=== PATIENT | female | born 1985 | race Caucasian/White ===

== ENCOUNTER → 2019-10-26 | Outpatient (CLI) | payer BC ==
[2019-10-26 10:45] LABS: HEMATOCRIT 36 % (35-52); HEMOGLOBIN 11.3 G/DL (11.5-16.0); LYMPHOCYTES % (AUTO) 12 % (12-44); MEAN CORPUSCULAR HEMOGLOBIN 24 PG (25-34); MEAN CORPUSCULAR HGB CONC 32 G/DL (32-36); MEAN CORPUSCULAR VOLUME 76 FL (80-99); MEAN PLATELET VOLUME 10.4 FL (7.4-10.4); MONOCYTES % (AUTO) 6 % (0-12); NEUTROPHILS % (AUTO) 81 % (42-75); PLATELET COUNT 295 10^3/uL (130-400); RED CELL DISTRIBUTION WIDTH 14.9 % (10.0-14.5); WHITE BLOOD COUNT 14.8 10^3/uL (4.3-11.0)
[2019-10-26 10:46] LABS: BASOPHILS % (AUTO) 0 % (0-10); EOSINOPHILS % (AUTO) 0 % (0-10); LYMPHOCYTES # (AUTO) 1.7 X 10^3 (1.0-4.0); MONOCYTES # (AUTO) 0.9 X 10^3 (0.0-1.0)
[2019-10-26 10:54] LABS: CHLORIDE 103 MMOL/L (98-107); POTASSIUM 3.8 MMOL/L (3.6-5.0); SODIUM 137 MMOL/L (135-145)
[2019-10-26 10:55] LABS: ALANINE AMINOTRANSFERASE 13 U/L (0-55); ALBUMIN 3.6 GM/DL (3.2-4.5); ALKALINE PHOSPHATASE 105 U/L (40-136); BILIRUBIN,TOTAL 0.2 MG/DL (0.1-1.0); BUN/CREATININE RATIO 10; CALCIUM 9.5 MG/DL (8.5-10.1); CARBON DIOXIDE 19 MMOL/L (21-32); CREATININE SERUM 0.49 MG/DL (0.60-1.30); GFR ESTIMATED > 60; GLUCOSE 94 MG/DL (70-105)
[2019-10-26 11:32] LABS: BAND NEUTROPHILS 4 %; NEUTROPHILS % (MANUAL) 82 %
[2019-10-26 11:33] LABS: BASOPHILS % (MANUAL) 0 %; EOSINOPHILS % (MANUAL) 0 %; LYMPHOCYTES % (MANUAL) 11 %; MICROCYTOSIS MODERATE; MONOCYTES % (MANUAL) 3 %
[2019-10-26 15:04] LABS: URIC ACID 4.2 MG/DL (2.6-7.2)
== END ==
LOC: EDBD 10:14 → LAB FS 10:14
PROVIDERS: ATTEND Family Medicine
DX: I10 Essential (primary) hypertension (principal)
CPT/HCPCS: 36415; 80053; 82570; 83615; 84156; 84550; 85007; 85027

== ENCOUNTER 2019-11-04 08:35 | Outpatient (CLI) | payer BC ==
[2019-11-04] VITALS (11 sets, daily range): BP systolic 135–153; BP diastolic 88–107
--- NOTE | 2019-11-04 08:33 | NUR ---
DANNIE ROGERS presented to unit via ambulation from clinic, accompanied by family, with c/o ELEVATED BLOOD PRESSURE. DANNIE ROGERS weighed, gowned, voided, and to bed. EFHM and TOCO applied, VS taken. DANNIE ROGERS oriented to bed controls, call light, TV, heat, and A/C controls.
[2019-11-04 09:52] LABS: BASOPHILS % (AUTO) 0 % (0-10); EOSINOPHILS % (AUTO) 0 % (0-10); HEMATOCRIT 34 % (35-52); HEMOGLOBIN 10.6 G/DL (11.5-16.0); LYMPHOCYTES # (AUTO) 1.6 X 10^3 (1.0-4.0); LYMPHOCYTES % (AUTO) 11 % (12-44); MEAN CORPUSCULAR HEMOGLOBIN 23 PG (25-34); MEAN CORPUSCULAR HGB CONC 31 G/DL (32-36); MEAN CORPUSCULAR VOLUME 75 FL (80-99); MONOCYTES # (AUTO) 1.3 X 10^3 (0.0-1.0); MONOCYTES % (AUTO) 9 % (0-12); NEUTROPHILS # (AUTO) 11.8 X 10^3 (1.8-7.8); NEUTROPHILS % (AUTO) 80 % (42-75); PLATELET COUNT 308 10^3/uL (130-400); RED CELL DISTRIBUTION WIDTH 15.4 % (10.0-14.5); WHITE BLOOD COUNT 14.7 10^3/uL (4.3-11.0)
[2019-11-04 10:11] LABS: ALANINE AMINOTRANSFERASE 17 U/L (0-55); ALBUMIN 3.4 GM/DL (3.2-4.5); ALKALINE PHOSPHATASE 110 U/L (40-136); BILIRUBIN,TOTAL 0.1 MG/DL (0.1-1.0); BUN/CREATININE RATIO 8; CALCIUM 9.3 MG/DL (8.5-10.1); CARBON DIOXIDE 21 MMOL/L (21-32); CHLORIDE 110 MMOL/L (98-107); CREATININE SERUM 0.62 MG/DL (0.60-1.30); GFR ESTIMATED > 60; GLUCOSE 85 MG/DL (70-105); POTASSIUM 3.6 MMOL/L (3.6-5.0); SODIUM 138 MMOL/L (135-145); TOTAL PROTEIN 6.5 GM/DL (6.4-8.2); URIC ACID 4.7 MG/DL (2.6-7.2)
[2019-11-04] MEDS ORDERED: LABETALOL 200 MG (NORMODYNE) TAB PO NR (11:15)
[2019-11-04 11:43] LABS: URINE CREATININE FOR RATIO 34 MG/DL (30-125); URINE PROTEIN FOR RATIO ONLY < 6 MG/DL (6-12)
--- NOTE | 2019-11-04 12:00 | NUR ---
dr sandoval to bedside reviewing poc with patient. patient and family verbalized understanding.
--- NOTE | 2019-11-04 13:40 | NUR ---
Labetolol 200mg BID called to [facility] Paramjit Mccann
--- NOTE | 2019-11-04 13:45 | NUR ---
Discharge instructions explained to pt with copy provided to pt. Pt verbalizes understanding of instruction, denies questions or concerns, and signs to verify. Pt notified of prescription at [facility]. IV removed, tip intact. Pt ambulates off unit to private vehicle, accompanied by family member. No s/s of distress noted.
--- NOTE | 2019-11-05 08:25 | Physician Query-Final Dx ---
RAMON CARMONA 11/05/19 0825: Clinic Account Progress/Dx Physician Query: Please give diagnosis Please include # weeks gestation Date of Service Nov 04, 2019 at 08:35 LOGAN FRAGOSO DO 11/05/19 1634: Clinic Account Progress/Dx DIAGNOSIS: Diagnosis 37 week IUP Gestational Hypertension RAMON CARMONA Nov 05, 2019 08:25 LOGAN FRAGOSO DO Nov 05, 2019 16:34
== END 2019-11-04 13:45 | disposition home or self-care (01) ==
LOC: WSo 08:35 → LDRP 09:10 → WSo 13:45
PROVIDERS: ATTEND Obstetrics & Gynecology
DX: O13.3 Gestational [pregnancy-induced] hypertension without significant proteinuria, third trimester (principal); Z3A.37 37 weeks gestation of pregnancy
CPT/HCPCS: 36415; 80053; 82570; 84156; 84550; 85025; 99213

== ENCOUNTER 2019-11-16 19:00 | Inpatient (IN) | payer BC ==
[~2019-11-16] VITALS: Ht 165.1 cm; Wt 103.7 kg
--- NOTE | 2019-11-16 18:55 | NUR ---
DANNIE ROGERS presented to unit via ambulation from ED, accompanied by S.O. and mom, for INUDCTION. DANNIE ROGERS weighed, gowned, voided, and to bed. EFHM and TOCO applied, VS taken. DANNIE ROGERS oriented to bed controls, call light, TV, heat, and A/C controls.
[2019-11-16] MEDS ORDERED: D5 LR IV SOLUTION 1,000 ML IV ONE (20:06)
[2019-11-16] MEDS: D5 LR IV SOLUTION 1,000 ML IV SCH (20:40)
[2019-11-16] MEDS ORDERED: MISOPROSTOL 100 MCG (CYTOTEC) TAB ONE (20:50)
[2019-11-16 21:00] VITALS: BP 153/89
[2019-11-16] MEDS ORDERED: MISOPROSTOL 100 MCG (CYTOTEC) TAB PO ONE (21:00)
[2019-11-16] MEDS ORDERED: LABE200T7 PO (21:04)
[2019-11-16 21:05] LABS: BASOPHILS % (AUTO) 0 % (0-10); EOSINOPHILS % (AUTO) 0 % (0-10); HEMATOCRIT 32 % (35-52); HEMOGLOBIN 10.4 G/DL (11.5-16.0); LYMPHOCYTES # (AUTO) 1.8 X 10^3 (1.0-4.0); LYMPHOCYTES % (AUTO) 13 % (12-44); MEAN CORPUSCULAR HEMOGLOBIN 24 PG (25-34); MEAN CORPUSCULAR HGB CONC 32 G/DL (32-36); MEAN CORPUSCULAR VOLUME 74 FL (80-99); MEAN PLATELET VOLUME 10.9 FL (7.4-10.4); MONOCYTES # (AUTO) 1.2 X 10^3 (0.0-1.0); MONOCYTES % (AUTO) 8 % (0-12); NEUTROPHILS # (AUTO) 11.3 X 10^3 (1.8-7.8); NEUTROPHILS % (AUTO) 79 % (42-75); PLATELET COUNT 316 10^3/uL (130-400); RED CELL DISTRIBUTION WIDTH 16.1 % (10.0-14.5); WHITE BLOOD COUNT 14.3 10^3/uL (4.3-11.0)
[2019-11-16] MEDS ORDERED: PREN-53 PO (21:05)
[2019-11-16] MEDS ORDERED: LORA10CA PO (21:06)
[2019-11-16] MEDS ORDERED: NS IV 500 ML 500 ML IV SCH (21:15)
[2019-11-16] MEDS ORDERED: CATHETER FLUSH 10 ML SYR IV SCH (22:00)
[2019-11-16 23:00] VITALS: BP 159/94
[2019-11-16 23:03] VITALS: BP 153/89
[2019-11-17] VITALS (78 sets, daily range): BP systolic 16–183; BP diastolic 58–104
[2019-11-17] MEDS: MISOPROSTOL 100 MCG (CYTOTEC) TAB PO SCH ×2 (00:57→04:54)
[2019-11-17 02:10] LABS: BILIRUBIN,URINE NEGATIVE (NEGATIVE); CLARITY,URINE SL CLOUDY; COLOR,URINE YELLOW; GLUCOSE, URINE (UA) NEGATIVE (NEGATIVE); KETONES,URINE NEGATIVE (NEGATIVE); LEUKOCYTE ESTERASE ,URINE TRACE (NEGATIVE); NITRITE,URINE NEGATIVE (NEGATIVE); PH,URINE 6.5 (5-9); PROTEIN,URINE NEGATIVE (NEGATIVE)
[2019-11-17 02:22] LABS: BACTERIA,URINE MODERATE /HPF; WBC,URINE RARE /HPF
[2019-11-17] MEDS: D5 LR IV SOLUTION 1,000 ML IV SCH ×2 (04:57→12:16)
[2019-11-17] MEDS: LABETALOL 200 MG (NORMODYNE) TAB PO SCH (08:33)
[2019-11-17] MEDS ORDERED: OXYTOCIN PRE-MIX DRIP 500 ML IV SCH (08:37)
[2019-11-17] MEDS ORDERED: ONDANSETRON 4 MG/2 ML (SDV) Z0FRAN IVP PRN (09:15)
[2019-11-17] MEDS ORDERED: SUFENTA 0.6MCG/ML BUPIVA 0.125 100 ML ONE (11:07)
[2019-11-17] MEDS ORDERED: BUPIVACAINE 0.25% 30 ML (SENSORCAINE) VIAL ONE (11:39)
[2019-11-17] MEDS ORDERED: fentaNYL INJECTION 100 MCG/2 ML AMP ONE (11:40)
[2019-11-17] MEDS: EPIDURAL (SUFENTA 0.6MCG/ML BUPIVA 0.125%) 100 ML BAG EPI SCH ×2 (12:04→19:20)
[2019-11-17] MEDS ORDERED: LACTATED RINGERS 1,000 ML IV ONE (12:06)
[2019-11-17] MEDS ORDERED: NALOXONE 0.4 MG/ML 1 ML (NARCAN) VIAL IV PRN (12:15)
[2019-11-17] MEDS ORDERED: CATHETER FLUSH 10 ML SYR IV PRN (12:15)
--- NOTE | 2019-11-17 13:02 | History & Physical-OB ---
OB - Chief Complaint & HPI Date/Time Date of Admission: Date of Admission: Nov 16, 2019 at 7:03 pm Date seen by a Provider: Nov 17, 2019 Time Seen by a Provider: 07:55 Chief Complaint/History OB-Reason for Admission/Chief: Induction of Labor Hx : 1 Hx Para: 0 Expected Date of Delivery: Dec 20, 2019 Gestational Age in Weeks: 39 Gestational Age in Days: 2 Indication for induction: other (GHTN) Admission Nurse Assessment Rev: Yes Allergies and Home Medications Allergies Coded Allergies: No Known Drug Allergies (Unverified , 11/04/19) Home Medications Labetalol HCl 200 Mg Tablet, 200 MG PO BID, (Reported) Loratadine 10 Mg Capsule, 10 MG PO DAILY, (Reported) [id number]/Iron Fumarate/FA/Dss 1 Each Tablet, 1 EACH PO DAILY, (Reported) Patient Home Medication List Home Medication List Reviewed: Yes OB - History Hx of Present Care: Yes Ultrasounds: Normal mid trimester US Obstetrical Complications: Gestational Hypertension Medical Complications: None Delivery History Adverse Rxn to Tranfusion: No Patient Past Medical History n/a Social History/Family History Alcohol Use: Denies Use Recreational Drug Use: No 2nd Hand Smoke Exposure: No Immunizations Hepatitis A: Yes Hepatitis B: Yes Date of Influenza Vaccine: Jul 16, 2020 OB - Admission Exam Physical Exam Vitals: Vital Signs 11/16/19 11/17/19 11/17/19 23:03 10:05 11:10 Temp 36.8 Pulse 67 Resp 18 B/P (MAP) 16/85 (62) Pulse Ox 98 O2 Delivery Room Air HEENT: NCAT Heart: Rhythm Normal Lungs: Clear Abdomen: Gravid Extremities: Normal Reflexes: Normal Cervical Dilatation: 2cm Effacement: 75% Station: -1 Membranes: Intact Heart Rate: 130's Accelerations: Accelerations Present Decelerations: No Decelerations Short Term Variability: Present Fpc Variability: Average (6-25) Contractions on Admission: >10 Minutes Apart Intensity: Mild Wilson Scoring Tool (Modified) Dilation (cm): 1-2cm (1) Effacement (%): 51-79% (2) Descent/Station: -1,0 (2) Cervix Consistency: Soft (2) Cervix Position: Anterior (2) Wilson Score: 8 Labs Laboratory Tests Test 11/16/19 20:40 11/17/19 01:55 Range/Units White Blood Count 14.3 H 4.3-11.0 10^3/uL Red Blood Count 4.40 4.35-5.85 10^6/uL Hemoglobin 10.4 L 11.5-16.0 G/DL Hematocrit 32 L 35-52 % Mean Corpuscular Volume 74 L 80-99 FL Mean Corpuscular Hemoglobin 24 L 25-34 PG Mean Corpuscular Hemoglobin Concent 32 32-36 G/DL Red Cell Distribution Width 16.1 H 10.0-14.5 % Platelet Count 316 130-400 10^3/uL Mean Platelet Volume 10.9 H 7.4-10.4 FL Neutrophils (%) (Auto) 79 H 42-75 % Lymphocytes (%) (Auto) 13 12-44 % Monocytes (%) (Auto) 8 0-12 % Eosinophils (%) (Auto) 0 0-10 % Basophils (%) (Auto) 0 0-10 % Neutrophils # (Auto) 11.3 H 1.8-7.8 X 10^3 Lymphocytes # (Auto) 1.8 1.0-4.0 X 10^3 Monocytes # (Auto) 1.2 H 0.0-1.0 X 10^3 Eosinophils # (Auto) 0.0 0.0-0.3 10^3/uL Basophils # (Auto) 0.0 0.0-0.1 10^3/uL Urine Color YELLOW Urine Clarity SL CLOUDY Urine pH 6.5 5-9 Urine Specific [place] 1.020 1.016-1.022 Urine Protein NEGATIVE NEGATIVE Urine Glucose (UA) NEGATIVE NEGATIVE Urine Ketones NEGATIVE NEGATIVE Urine Nitrite NEGATIVE NEGATIVE Urine Bilirubin NEGATIVE NEGATIVE Urine Urobilinogen 0.2 < = 1.0 MG/DL Urine Leukocyte Esterase TRACE H NEGATIVE Urine RBC (Auto) NEGATIVE NEGATIVE Urine RBC NONE /HPF Urine WBC RARE /HPF Urine Squamous Epithelial Cells 5-10 /HPF Urine Crystals NONE /LPF Urine Bacteria MODERATE H /HPF Urine Casts NONE /LPF Urine Mucus NEGATIVE /LPF Urine Culture Indicated NO OB - Assessment/Plan/Diagnosis Assessment Assessment: induction of labor Admission Dx 34 yo @ 39 weeks GHTN GBS neg Admission Status: Inpatient Order (span 2 midnights) Reason for Inpatient Admission: induction of labor at 39 weeks Plan Plan: Induction Induction Method: per Misoprostol Protocol LOGAN FRAGOSO DO Nov 17, 2019 1:02 pm
[2019-11-17] MEDS ORDERED: LABETALOL 200 MG (NORMODYNE) TAB PO ONE (17:30)
--- NOTE | 2019-11-17 23:13 | NUR ---
Augmentation bag of pitocin increased to 999ml/hr counting as first bag of pp administered order. 2335 - second bag of pitocin pulled and admin as pp therapy to count as second 500ml bag to total 1,000ml order.
[2019-11-17] MEDS ORDERED: TETANUS,DIPTH,PERTUSS P/F (BOOSTRIX) 0.5 ML VIAL IM ONE (23:30)
[2019-11-17] MEDS ORDERED: BENZOCAINE/MENTHOL (DERMOPLAST) 60 ML CAN TP PRN (23:30)
[2019-11-17] MEDS ORDERED: MEASLES,MUMPS,RUBELLA 1 EA INJ SQ ONE (23:30)
[2019-11-17] MEDS ORDERED: DIBUCAINE (NUPERCAINAL) 1% OINT 30 GM TOP PRN (23:30)
[2019-11-17] MEDS ORDERED: WITCH HAZEL(TUCKS) 40 EA JAR TOP PRN (23:30)
[2019-11-17] MEDS ORDERED: HYDROcodone/APAP 5 MG/325 MG (LORTAB) TAB PO PRN (23:30)
--- NOTE | 2019-11-17 23:33 | OB Labor & Delivery Record ---
L&D History Date of Service Date of Service: Nov 17, 2019 History Expected Date of Delivery: Dec 20, 2019 Gestational Age in Weeks: 39 Hx : 1 Hx Para: 0 Complications Events: Induced HTN, Routine care Operative Indications (Cesarea: N/A-Vaginal Delivery Intrapartal Events: None, Ineffective Pushing (prolonged bradycardia) L&D Stage1 Stage One Onset of Labor - Date: Nov 17, 2019 Monitors and Tracing Monitor Mode: External Heart Rate: 150 Monitor Accelerations: Uniform Monitor Decelerations: None Station: -2 Senior Living Variability: Average (6-10) Short Term Variability: Present Presentation: Vertex Vital Signs VS - Last 72 Hours, by Label 11/16/19 11/16/19 11/16/19 11/16/19 21:00 22:00 23:00 23:03 Temp 36.8 37.0 36.8 Pulse 95 92 77 95 Resp 18 18 18 18 B/P (MAP) 153/89 (110) 159/94 (115) Pulse Ox 98 97 98 O2 Delivery Room Air Room Air 11/17/19 11/17/19 11/17/19 11/17/19 00:00 01:00 02:00 03:00 Pulse 82 90 78 82 Resp 18 18 18 18 B/P (MAP) 157/93 (114) 146/82 (103) 137/80 (99) 148/86 (106) O2 Delivery Room Air Room Air Room Air Room Air 11/17/19 11/17/19 11/17/19 11/17/19 04:00 04:47 04:49 05:00 Pulse 85 74 85 Resp 18 18 18 B/P (MAP) 159/82 (107) 183/80 (114) 143/73 (96) O2 Delivery Room Air Room Air Room Air Room Air 11/17/19 11/17/19 11/17/19 11/17/19 06:00 07:00 08:00 09:00 Temp 37.2 Pulse 91 82 84 88 Resp 18 18 18 18 B/P (MAP) 153/83 (106) 149/79 (102) 154/90 (111) 162/102 (122) O2 Delivery Room Air Room Air Room Air Room Air 11/17/19 11/17/19 11/17/19 11/17/19 09:20 09:35 09:50 10:05 Temp 36.8 Pulse 81 79 75 70 Resp 18 18 18 18 B/P (MAP) 154/85 (108) 153/86 (108) 154/95 (114) 172/95 (120) O2 Delivery Room Air Room Air Room Air Room Air 11/17/19 11/17/19 11/17/19 11/17/19 10:20 10:35 10:50 11:10 Pulse 75 78 71 67 Resp 18 18 18 18 B/P (MAP) 144/71 (95) 146/71 (96) 165/79 (107) 16/85 (62) O2 Delivery Room Air Room Air Room Air Room Air 11/17/19 11/17/19 11/17/19 11/17/19 11:20 11:35 11:50 12:03 Temp 36.6 Pulse 86 84 92 74 Resp 18 18 18 18 B/P (MAP) 162/83 (109) 126/73 (90) 151/91 (111) Pulse Ox 99 99 O2 Delivery Room Air Room Air Room Air Room Air 11/17/19 11/17/19 11/17/19 11/17/19 12:06 12:09 12:11 12:14 Pulse 86 79 73 86 Resp 18 18 18 18 B/P (MAP) 152/93 (112) 140/89 (106) 146/94 (111) 151/95 (113) Pulse Ox 99 97 97 97 O2 Delivery Room Air Room Air Room Air Room Air 11/17/19 11/17/19 11/17/19 11/17/19 12:17 12:20 12:23 12:26 Pulse 89 80 76 75 Resp 18 18 18 18 B/P (MAP) 150/96 (114) 144/96 (112) 142/93 (109) 143/87 (105) Pulse Ox 98 98 98 O2 Delivery Room Air Room Air Room Air Room Air 11/17/19 11/17/19 11/17/19 11/17/19 12:30 12:36 12:42 12:45 Temp 36.5 Pulse 81 73 72 72 Resp 18 18 18 18 B/P (MAP) 144/94 (111) 138/72 (94) 126/79 (95) 151/94 (113) Pulse Ox 98 98 O2 Delivery Room Air 2/18/20 11/17/19 11/17/19 11/17/19 13:05 13:20 13:35 13:50 Temp 36.9 Pulse 69 73 79 69 Resp 18 18 18 18 B/P (MAP) 146/82 (103) 145/80 (101) 130/65 (86) 118/58 (78) Pulse Ox 96 96 98 97 11/17/19 11/17/19 11/17/19 11/17/19 14:05 14:20 14:35 14:50 Pulse 75 77 76 86 Resp 18 18 18 18 B/P (MAP) 120/58 (78) 117/60 (79) 116/62 (80) 126/67 (86) Pulse Ox 96 95 96 97 O2 Delivery Room Air 11/17/19 11/17/19 11/17/19 11/17/19 15:05 15:20 15:35 15:50 Temp 37.8 Pulse 85 86 88 82 Resp 18 18 18 18 B/P (MAP) 126/63 (84) 119/65 (83) 123/65 (84) 157/104 (121) Pulse Ox 97 96 98 98 O2 Delivery Room Air Room Air Room Air Room Air 11/17/19 11/17/19 11/17/19 11/17/19 16:10 16:20 16:35 16:50 Pulse 83 80 93 96 Resp 18 18 18 18 B/P (MAP) 162/94 (116) 166/89 (114) 151/85 (107) 159/87 (111) Pulse Ox 98 98 O2 Delivery Room Air Room Air Room Air Room Air 11/17/19 11/17/19 11/17/19 11/17/19 17:05 17:20 17:35 17:50 Pulse 93 93 99 99 Resp 18 18 18 18 B/P (MAP) 164/94 (117) 164/90 (114) 154/96 (115) 156/97 (116) O2 Delivery Room Air Room Air Room Air Room Air 11/17/19 11/17/19 11/17/19 11/17/19 18:05 18:20 18:35 18:50 Temp 37.7 Pulse 96 91 89 96 Resp 18 18 18 18 B/P (MAP) 150/92 (111) 157/94 (115) 150/93 (112) 134/70 (91) O2 Delivery Room Air Room Air Room Air Room Air 11/17/19 11/17/19 11/17/19 11/17/19 19:05 19:30 19:45 19:50 Temp 37.2 Pulse 90 91 82 85 Resp 18 18 18 18 B/P (MAP) 127/66 (86) 129/70 (89) 149/74 (99) 173/92 (119) O2 Delivery Room Air Room Air Room Air Non Rebreather O2 Flow Rate 15.00 11/17/19 11/17/19 11/17/19 11/17/19 20:00 20:15 20:30 20:45 Pulse 88 82 102 105 Resp 18 18 18 18 B/P (MAP) 163/79 (107) 134/70 (91) 141/74 (96) 126/63 (84) Pulse Ox 98 98 O2 Delivery Non Rebreather Non Rebreather Room Air O2 Flow Rate 15.00 15.00 11/17/19 11/17/19 11/17/19 21:00 21:15 21:30 Temp 37.8 Pulse 110 91 92 Resp 18 18 18 B/P (MAP) 128/77 (94) 134/72 (92) 134/72 (92) Pulse Ox 98 98 98 O2 Delivery Room Air Room Air Room Air Rupture of Membranes Amniotic Membrane Rupture Time: 0807 Amniotic Membrane Fluid Desc.: Clear Vaginal Bleeding Description: Normal Show Induction/Anesthesia Epidural Cath Placement - Time: 1157 Progress/Notes Patient admitted last night and started on PO cytotec 100 mcg followed by 50 q 4 mg until 5am. AROM performed this morning at 0755 clear fluid noted, and pitocin augmentation started at 0900 due to ineffective contraction pattern. Pitocin started and 2 mu and increased throughout the day to 18 mu/min. She received an epidural and progressed to complete and +2 station L&D Stage2 Monitors and Tracing Monitor Mode: External Heart Rate: 150 Monitor Accelerations: None Monitor Decelerations: Prolonged Air Carrier Maintenance Inspector Variability: Minimal (3-5) Short Term Variability: Present Position: Right Occiput Anterior Presentation: Vertex Signs of Distress by FHT Signs of Distress Prolonged bradycardia noted as patient progressed vertex to +2-3 station. At this point maternal pushing became ineffective and patient started losing control. Kiwi vacuum extractor was placed at the flexion point of the scalp down the midsagital suture. with next maternal push, 550 mm Hg was applied at the handle and with gentle extension of the head, infant's head was delivered over RML episiotomy. After which tension is released and suction cup is removed. Cord Descript/Complications Cord Vessel Description: 3 Vessels Complications tight nuchal cord reduced x 1 Delivery Type Infant Delivery Method: Low Vacuum Extraction Anterior Shoulder: Left Episiotomy/Perineal Laceration Laceraction(s)/Extensions: Yes Episiotomy Description: Right Mediolateral Degree (describe repair) RML repaired using 3-0 rapide and 2-0 vicryl suture in usual fashion Condition of Infant Delivery 1 minute Comment: 8 5 minute Comment: 9 Notes Live male infant weight 6lbs 13 oz Condition of Condition of : Living Exam: No Observed Abnormalities Resuscitation Resuscitation: N/A - Spontaneous Resp L&D Stage3 Stage Three Stage III Date: Nov 17, 2019 Pictocin Pitocin Administration mu/min: 18 Pitocin ml/hr: 18 Pitocin Administration Comment: 30 mu wide open at delivery of placenta Placenta Delivery Placenta Delivery: Spontaneous Delivery Summary Summary Estimated blood loss (mL): 350 Attending at delivery: Logan Fragoso DO Condition of Delivery Examined: Cervix Examined, Uterus Explored Post Hemorrhage: No Condition of Mother stable Condition of Infant (s) stable LOGAN FRAGOSO DO Nov 17, 2019 11:33 pm
[2019-11-17] MEDS: OXYTOCIN PRE-MIX DRIP 500 ML IV SCH (23:35)
[2019-11-18] VITALS (13 sets, daily range): BP systolic 113–150; BP diastolic 65–93
[2019-11-18] MEDS ORDERED: IBUPROFEN 600 MG (MOTRIN) TAB PO ONE (00:02)
[2019-11-18] MEDS: OXYTOCIN PRE-MIX DRIP 500 ML IV SCH (00:04)
[2019-11-18] MEDS: LABETALOL 200 MG (NORMODYNE) TAB PO SCH ×3 (00:09→21:10)
[2019-11-18] MEDS: IBUPROFEN 600 MG (MOTRIN) TAB PO SCH ×3 (00:10→18:05)
[2019-11-18] MEDS ORDERED: LIDOCAINE/EPI 1%-1:200,000 (XYLOCAINE) 30 ML VIAL INJ PRN (00:15)
--- NOTE | 2019-11-18 02:00 | NUR ---
Epidural cath removed, tip in tract, site wnl pt to bathroom, becomes dizzy, pt transferred to without voiding, pt to room 312 and placed supine in bed with hob lowered, pt reports relief. Will cont to monitor, pt yet to void since delivery.
[2019-11-18] MEDS ORDERED: CATHETER FLUSH 10 ML SYR IV SCH (06:00)
[2019-11-18 06:10] LABS: BASOPHILS % (AUTO) 0 % (0-10); EOSINOPHILS % (AUTO) 0 % (0-10); HEMATOCRIT 29 % (35-52); HEMOGLOBIN 8.7 G/DL (11.5-16.0); LYMPHOCYTES # (AUTO) 1.2 X 10^3 (1.0-4.0); LYMPHOCYTES % (AUTO) 5 % (12-44); MEAN CORPUSCULAR HEMOGLOBIN 23 PG (25-34); MEAN CORPUSCULAR HGB CONC 31 G/DL (32-36); MEAN CORPUSCULAR VOLUME 74 FL (80-99); MEAN PLATELET VOLUME 11.2 FL (7.4-10.4); MONOCYTES # (AUTO) 2.4 X 10^3 (0.0-1.0); MONOCYTES % (AUTO) 10 % (0-12); NEUTROPHILS # (AUTO) 20.2 X 10^3 (1.8-7.8); NEUTROPHILS % (AUTO) 85 % (42-75); PLATELET COUNT 296 10^3/uL (130-400); RED CELL DISTRIBUTION WIDTH 15.7 % (10.0-14.5); WHITE BLOOD COUNT 23.9 10^3/uL (4.3-11.0)
--- NOTE | 2019-11-18 08:02 | Postpartum Progress Note ---
Note Note Day # 1 Subjective: Patient is without complaints. Ambulating, voiding. Tolerating a regular diet without nausea or vomiting. Normal lochia. Pain is well controlled with oral pain medications. Objective: Physical Exam: General - Alert and oriented, no apparent distress Abdomen - Soft, appropriately tender to palpation, non-distended, fundus firm at umbilicus Extremities - no edema, negative Sukumar's bilaterally Assessment: PPD 1 VAVD Acute blood loss anemia Plan: Routine care. Encourage breast feeding. Encourage ambulation. Ferrous sulfate supplementation. Plan for discharge tomorrow Vitals - Labs Vital Signs - I&O Vital Signs Date Time Temp Pulse Resp B/P (MAP) Pulse Ox O2 Delivery O2 Flow Rate FiO2 11/18/19 05:33 36.5 93 18 133/87 (102) 97 Room Air 11/18/19 01:35 36.9 100 18 126/76 (93) Room Air 11/18/19 01:20 102 18 131/72 (91) Room Air 11/18/19 01:05 90 18 113/66 (82) Room Air 11/18/19 00:50 97 18 122/74 (90) Room Air 11/18/19 00:35 95 18 136/76 (96) Room Air 11/18/19 00:15 37.0 99 18 137/76 (96) Room Air 11/18/19 00:00 37.2 98 18 140/74 (96) Room Air 11/17/19 23:45 37.2 101 18 136/74 (94) Room Air 11/17/19 23:30 37.3 101 18 150/79 (102) Room Air 11/17/19 23:15 37.3 117 18 146/69 (94) Room Air 11/17/19 22:54 97 18 156/72 (100) Room Air 11/17/19 22:45 96 18 139/75 (96) 100 Room Air 11/17/19 22:30 96 18 133/82 (99) 98 Room Air 11/17/19 22:15 95 18 149/90 (109) 98 Room Air 11/17/19 22:00 93 18 144/73 (96) 97 Room Air 11/17/19 21:45 96 18 131/73 (92) 96 Room Air 11/17/19 21:30 92 18 134/72 (92) 98 Room Air 11/17/19 21:15 91 18 134/72 (92) 98 Room Air 11/17/19 21:00 37.8 110 18 128/77 (94) 98 Room Air 11/17/19 20:45 105 18 126/63 (84) 98 Room Air 11/17/19 20:30 102 18 141/74 (96) 98 11/17/19 20:15 82 18 134/70 (91) Non Rebreather 15.00 11/17/19 20:00 88 18 163/79 (107) Non Rebreather 15.00 11/17/19 19:50 85 18 173/92 (119) Non Rebreather 15.00 11/17/19 19:45 82 18 149/74 (99) Room Air 11/17/19 19:30 37.2 91 18 129/70 (89) Room Air 11/17/19 19:05 90 18 127/66 (86) Room Air 11/17/19 18:50 96 18 134/70 (91) Room Air 11/17/19 18:35 89 18 150/93 (112) Room Air 11/17/19 18:20 37.7 91 18 157/94 (115) Room Air 11/17/19 18:05 96 18 150/92 (111) Room Air 11/17/19 17:50 99 18 156/97 (116) Room Air 11/17/19 17:35 99 18 154/96 (115) Room Air 11/17/19 17:20 93 18 164/90 (114) Room Air 11/17/19 17:05 93 18 164/94 (117) Room Air 11/17/19 16:50 96 18 159/87 (111) Room Air 11/17/19 16:35 93 18 151/85 (107) Room Air 11/17/19 16:20 80 18 166/89 (114) 98 Room Air 11/17/19 16:10 83 18 162/94 (116) 98 Room Air 11/17/19 15:50 37.8 82 18 157/104 (121) 98 Room Air 11/17/19 15:35 88 18 123/65 (84) 98 Room Air 11/17/19 15:20 86 18 119/65 (83) 96 Room Air 11/17/19 15:05 85 18 126/63 (84) 97 Room Air 11/17/19 14:50 86 18 126/67 (86) 97 Room Air 11/17/19 14:35 76 18 116/62 (80) 96 11/17/19 14:20 77 18 117/60 (79) 95 11/17/19 14:05 75 18 120/58 (78) 96 11/17/19 13:50 69 18 118/58 (78) 97 11/17/19 13:35 36.9 79 18 130/65 (86) 98 11/17/19 13:20 73 18 145/80 (101) 96 11/17/19 13:05 69 18 146/82 (103) 96 11/17/19 12:45 72 18 151/94 (113) 98 11/17/19 12:42 72 18 126/79 (95) 98 11/17/19 12:36 73 18 138/72 (94) 11/17/19 12:30 36.5 81 18 144/94 (111) Room Air 11/17/19 12:26 75 18 143/87 (105) Room Air 11/17/19 12:23 76 18 142/93 (109) 98 Room Air 11/17/19 12:20 80 18 144/96 (112) 98 Room Air 11/17/19 12:17 89 18 150/96 (114) 98 Room Air 11/17/19 12:14 86 18 151/95 (113) 97 Room Air 11/17/19 12:11 73 18 146/94 (111) 97 Room Air 11/17/19 12:09 79 18 140/89 (106) 97 Room Air 11/17/19 12:06 86 18 152/93 (112) 99 Room Air 11/17/19 12:03 74 18 151/91 (111) 99 Room Air 11/17/19 11:50 36.6 92 18 99 Room Air 11/17/19 11:35 84 18 126/73 (90) Room Air 11/17/19 11:20 86 18 162/83 (109) Room Air 11/17/19 11:10 67 18 16/85 (62) Room Air 11/17/19 10:50 71 18 165/79 (107) Room Air 11/17/19 10:35 78 18 146/71 (96) Room Air 11/17/19 10:20 75 18 144/71 (95) Room Air 11/17/19 10:05 36.8 70 18 172/95 (120) Room Air 11/17/19 09:50 75 18 154/95 (114) Room Air 11/17/19 09:35 79 18 153/86 (108) Room Air 11/17/19 09:20 81 18 154/85 (108) Room Air 11/17/19 09:00 88 18 162/102 (122) Room Air I & O 11/18/19 07:00 Intake Total 3500 ml Balance 3500 ml Labs Laboratory Tests 11/18/19 05:44: White Blood Count 23.9H, Red Blood Count 3.85L, Hemoglobin 8.7L, Hematocrit 29L, Mean Corpuscular Volume 74L, Mean Corpuscular Hemoglobin 23L, Mean Corpuscular Hemoglobin Concent 31L, Red Cell Distribution Width 15.7H, Platelet Count 296, Mean Platelet Volume 11.2H, Neutrophils (%) (Auto) 85H, Lymphocytes (%) (Auto) 5L, Monocytes (%) (Auto) 10, Eosinophils (%) (Auto) 0, Basophils (%) (Auto) 0, Neutrophils # (Auto) 20.2H, Lymphocytes # (Auto) 1.2, Monocytes # (Auto) 2.4H, Eosinophils # (Auto) 0.0, Basophils # (Auto) 0.0 LOGAN FRAGOSO DO Nov 18, 2019 08:02
--- NOTE | 2019-11-18 08:07 | Discharge Inst-Women's Service ---
Discharge Inst-Women's Serv Depart Medication/Instructions New, Converted or Re-Newed RX: RX on Chart Final Diagnosis PPD 2 VAVD Problems Reviewed?: Yes Consults/Follow Up Additional Follow Up: Yes Orders/Referrals Dr. Fragoso or Wally in 6 weeks Activity Activity: Activity as Tolerated Driving Instructions: No Driving for 1 Week NO SMOKING: NO SMOKING Nothing Inside Vagina: No Douching, No [place], No Tampons Diet Discharge Diet: No Restrictions Symptoms to Report to : Bleeding Excessive, Pain Increased, Fever Over 101 Degrees F, Vaginal Bleeding Increase, Questions/Concerns For Any Problems or Questions: Contact Your Physician LOGAN FRAGOSO DO Nov 18, 2019 08:07
[2019-11-18] MEDS ORDERED: ACHD5005 PO (08:11)
[2019-11-18] MEDS ORDERED: DIBU30OI TOP (08:11)
[2019-11-18] MEDS ORDERED: IBUP-844 PO (08:11)
[2019-11-18] MEDS ORDERED: FERR325T18 PO (08:11)
[2019-11-18] MEDS ORDERED: BENZ78AE2 TP (08:11)
[2019-11-18] MEDS ORDERED: DOCU-244 PO (08:11)
[2019-11-18] MEDS: PRENATAL VITAMIN 1 EA TAB PO SCH (09:11)
[2019-11-18] MEDS: FERROUS SULF 325 MG (IRON) TAB PO SCH (09:11)
[2019-11-18] MEDS: DOCUSATE SODIUM 100 MG (COLACE) CAP PO SCH ×2 (09:11→21:10)
[2019-11-18] MEDS ORDERED: BENZOCAINE/MENTHOL (DERMOPLAST) 60 ML CAN TP PRN (09:15)
--- NOTE | 2019-11-18 12:45 | Anesthesia-Regional Post-Op ---
Regional Patient Condition Mental Status: Alert, Oriented x3 Circulation: Same as Pre-Op Headache: Absent Sensation: Full Recovery Motor Block: Absent Post Op Complications Complications None Follow Up Care/Instructions Patient Instructions None needed. Anesthesia/Patient Condition Patient is doing well, no complaints, stable vital signs, no apparent adverse anesthesia problems. KENNEDY JONES DO Nov 18, 2019 12:45
--- NOTE | 2019-11-18 15:30 | NUR ---
DENIES ANY WANTS OR NEEDS.
--- NOTE | 2019-11-18 17:00 | NUR ---
FAMILY AT BEDSIDE. BP ELEVATED. WILL CONTINUE TO MONITOR. CARING FOR IN ROOM. GOOD INTERACTION NOTED.
[2019-11-19 00:45] VITALS: BP 127/66
[2019-11-19] MEDS: IBUPROFEN 600 MG (MOTRIN) TAB PO SCH ×4 (00:46→20:04)
[2019-11-19 06:36] LABS: BASOPHILS % (AUTO) 0 % (0-10); EOSINOPHILS # (AUTO) 0.1 10^3/uL (0.0-0.3); EOSINOPHILS % (AUTO) 0 % (0-10); HEMATOCRIT 24 % (35-52); HEMOGLOBIN 7.3 G/DL (11.5-16.0); LYMPHOCYTES # (AUTO) 2.3 X 10^3 (1.0-4.0); LYMPHOCYTES % (AUTO) 15 % (12-44); MEAN CORPUSCULAR HEMOGLOBIN 23 PG (25-34); MEAN CORPUSCULAR HGB CONC 30 G/DL (32-36); MEAN CORPUSCULAR VOLUME 75 FL (80-99); MEAN PLATELET VOLUME 10.8 FL (7.4-10.4); MONOCYTES # (AUTO) 1.3 X 10^3 (0.0-1.0); MONOCYTES % (AUTO) 8 % (0-12); NEUTROPHILS # (AUTO) 11.8 X 10^3 (1.8-7.8); NEUTROPHILS % (AUTO) 76 % (42-75); PLATELET COUNT 265 10^3/uL (130-400); RED CELL DISTRIBUTION WIDTH 16.1 % (10.0-14.5); WHITE BLOOD COUNT 15.5 10^3/uL (4.3-11.0)
[2019-11-19] MEDS: PRENATAL VITAMIN 1 EA TAB PO SCH (07:29)
[2019-11-19 07:30] VITALS: BP 131/75
--- NOTE | 2019-11-19 07:35 | Postpartum Progress Note ---
ROLY NATH,MED STUDENT 11/19/19 0735: Note Note Day # 2 Subjective: Patient had one episode of dizziness last night while in the shower, otherwise no complaints. Ambulating, voiding. Tolerating a regular diet without nausea or vomiting. Normal lochia. Pain is well controlled with oral pain medications. Objective: Physical Exam: General - Alert and oriented, no apparent distress Abdomen - Soft, appropriately tender to palpation, non-distended, fundus firm at umbilicus Extremities - no edema, negative Sukumar's bilaterally Assessment: post- day # 2, status post operative vaginal delivery. Acute blood loss anemia Plan: Routine care. Encourage breast feeding. Encourage ambulation. Ferrous sulfate supplementation, if pt become symptomatic, consider transfusion Plan for discharge today Vitals - Labs Vital Signs - I&O Vital Signs Date Time Temp Pulse Resp B/P (MAP) Pulse Ox O2 Delivery O2 Flow Rate FiO2 11/19/19 00:45 36.7 91 16 127/66 (86) 97 11/18/19 19:25 37.0 108 18 144/93 (110) 97 11/18/19 17:00 37.0 96 18 150/84 (106) 96 Room Air 11/18/19 12:49 37.1 11/18/19 12:30 36.5 84 16 114/65 (81) 97 Room Air 11/18/19 08:30 36.7 88 18 138/92 (107) 95 Room Air 11/18/19 08:00 36.7 88 18 138/92 (107) 95 Room Air Labs Laboratory Tests 11/19/19 05:55: White Blood Count 15.5H, Red Blood Count 3.24L, Hemoglobin 7.3L, Hematocrit 24L, Mean Corpuscular Volume 75L, Mean Corpuscular Hemoglobin 23L, Mean Corpuscular Hemoglobin Concent 30L, Red Cell Distribution Width 16.1H, Platelet Count 265, Mean Platelet Volume 10.8H, Neutrophils (%) (Auto) 76H, Lymphocytes (%) (Auto) 15, Monocytes (%) (Auto) 8, Eosinophils (%) (Auto) 0, Basophils (%) (Auto) 0, Neutrophils # (Auto) 11.8H, Lymphocytes # (Auto) 2.3, Monocytes # (Auto) 1.3H, Eosinophils # (Auto) 0.1, Basophils # (Auto) 0.0 EZEQUIEL FRAGOSO DO 11/19/19 1117: Note Note Verification and Attestation of Medical Student E/M Service Patient kept until tomorrow to repeat hgb due to significant drop and acute blood loss anemia, she is currently asymptomatic so will avoid transfusing if possible A medical student performed and documented this service in my presence. I reviewed and verified all information documented by the medical student and made modifications to such information, when appropriate. I personally performed the physical exam and medical decision making. Ezequiel Fragoso, Nov 19, 2019,11:17 ROLY NATH,MED STUDENT Nov 19, 2019 07:35 EZEQUIEL FRAGOSO DO Nov 19, 2019 11:17
[2019-11-19] MEDS: LABETALOL 200 MG (NORMODYNE) TAB PO SCH ×2 (09:08→20:04)
[2019-11-19] MEDS: DOCUSATE SODIUM 100 MG (COLACE) CAP PO SCH ×2 (09:08→20:04)
[2019-11-19] MEDS: FERROUS SULF 325 MG (IRON) TAB PO SCH (09:08)
[2019-11-19 13:30] VITALS: BP 139/95
[2019-11-19 20:05] VITALS: BP 167/103
[2019-11-19 21:10] VITALS: BP 149/94
[2019-11-20] MEDS: IBUPROFEN 600 MG (MOTRIN) TAB PO SCH ×2 (01:55→09:00)
[2019-11-20 02:00] VITALS: BP 139/85
[2019-11-20 05:38] LABS: BASOPHILS % (AUTO) 0 % (0-10); EOSINOPHILS # (AUTO) 0.1 10^3/uL (0.0-0.3); EOSINOPHILS % (AUTO) 1 % (0-10); HEMATOCRIT 25 % (35-52); HEMOGLOBIN 7.5 G/DL (11.5-16.0); LYMPHOCYTES # (AUTO) 2.5 X 10^3 (1.0-4.0); LYMPHOCYTES % (AUTO) 20 % (12-44); MEAN CORPUSCULAR HEMOGLOBIN 23 PG (25-34); MEAN CORPUSCULAR HGB CONC 31 G/DL (32-36); MEAN CORPUSCULAR VOLUME 76 FL (80-99); MEAN PLATELET VOLUME 10.4 FL (7.4-10.4); MONOCYTES % (AUTO) 8 % (0-12); NEUTROPHILS # (AUTO) 8.7 X 10^3 (1.8-7.8); NEUTROPHILS % (AUTO) 71 % (42-75); PLATELET COUNT 243 10^3/uL (130-400); WHITE BLOOD COUNT 12.3 10^3/uL (4.3-11.0)
--- NOTE | 2019-11-20 07:29 | Postpartum Progress Note ---
Note Note Day # 3 Subjective: Patient is without complaints. Has had no episodes of dizziness, lightheadedness, syncope since yesterday. Ambulating, voiding. Tolerating a regular diet without nausea or vomiting. Normal lochia. Pain is well controlled with oral pain medications. Objective: Physical Exam: General - Alert and oriented, no apparent distress Abdomen - Soft, appropriately tender to palpation, non-distended, fundus firm at umbilicus Extremities - +1 pitting edema, negative Sukumar's bilaterally Assessment: post- day # 3, status post operative vaginal delivery. Anemia improving, hgb alma delia from 7.3 to 7.5 overnight. Other than one episode of syncope yesterday, pt has been feeling well Plan: Routine care. Encourage breast feeding. Encourage ambulation. Ferrous sulfate supplementation. Plan for discharge today Vitals - Labs Vital Signs - I&O Vital Signs Date Time Temp Pulse Resp B/P (MAP) Pulse Ox O2 Delivery O2 Flow Rate FiO2 11/20/19 02:00 36.2 97 18 139/85 (103) 100 11/19/19 21:10 86 149/94 (112) 11/19/19 20:05 36.5 77 18 167/103 (124) 98 11/19/19 13:30 36.9 95 16 139/95 (110) 99 Room Air 11/19/19 07:30 36.8 92 16 131/75 (93) 96 Labs Laboratory Tests 11/20/19 05:25: White Blood Count 12.3H, Red Blood Count 3.23L, Hemoglobin 7.5L, Hematocrit 25L, Mean Corpuscular Volume 76L, Mean Corpuscular Hemoglobin 23L, Mean Corpuscular Hemoglobin Concent 31L, Red Cell Distribution Width 16.0H, Platelet Count 243, Mean Platelet Volume 10.4, Neutrophils (%) (Auto) 71, Lymphocytes (%) (Auto) 20, Monocytes (%) (Auto) 8, Eosinophils (%) (Auto) 1, Basophils (%) (Auto) 0, Neutrophils # (Auto) 8.7H, Lymphocytes # (Auto) 2.5, Monocytes # (Auto) 1.0, Eosinophils # (Auto) 0.1, Basophils # (Auto) 0.0 ROLY NATH,MED STUDENT Nov 20, 2019 07:29
[2019-11-20 09:00] VITALS: BP 146/90
[2019-11-20] MEDS: LABETALOL 200 MG (NORMODYNE) TAB PO SCH (09:00)
[2019-11-20] MEDS: PRENATAL VITAMIN 1 EA TAB PO SCH (09:00)
[2019-11-20] MEDS: FERROUS SULF 325 MG (IRON) TAB PO SCH (09:00)
[2019-11-20] MEDS: DOCUSATE SODIUM 100 MG (COLACE) CAP PO SCH (09:00)
--- NOTE | 2019-11-20 12:15 | NUR ---
DANNIE ROGERS demonstrates understanding of discharge instructions and accurately returns instructions upon questioning. Copy of Post-Discharge Instructions and Medication Discharge Instructions given to patient. DANNIE ROGERS is able to manage continuing needs after discharge. Patients belongings returned to patient. Skin dry and intact; no breakdown noted. Patient discharged from 3312-1 on 11-20-19 at 1215. DANNIE ROGERS left floor via ambulation, accompanied by staff and s/o.
== END 2019-11-20 12:15 | disposition home or self-care (01) | DRG 806 ==
LOC: LDRP 19:03
PROVIDERS: ADMIT Obstetrics & Gynecology; ATTEND Obstetrics & Gynecology
PROC: 10D07Z6 Extraction of Products of Conception, Vacuum, Via Natural or Artificial Opening (ICD-10-PCS; principal; 2019-11-17)
PROC: 0W8NXZZ Division of Female Perineum, External Approach (ICD-10-PCS; 2019-11-17)
PROC: 3E0DXGC Introduction of Other Therapeutic Substance into Mouth and Pharynx, External Approach (ICD-10-PCS; 2019-11-17)
DX: O10.92 Unspecified pre-existing hypertension complicating childbirth (principal); O76 Abnormality in fetal heart rate and rhythm complicating labor and delivery; O90.81 Anemia of the puerperium; D62 Acute posthemorrhagic anemia; O69.81X0 Labor and delivery complicated by cord around neck, without compression, not applicable or unspecified; O75.89 Other specified complications of labor and delivery; Z3A.39 39 weeks gestation of pregnancy; Z37.0 Single live birth
CPT/HCPCS: 36415; 81000; 85025; 86850; 86900; 86901; 88307

== ENCOUNTER 2019-11-26 14:55 | Emergency (ER) | payer BC ==
[~2019-11-26] VITALS: Ht 165.1 cm; Wt 97.8 kg
[~2019-11-26 14:55] MED LIST: ACHD5005 PO; BENZ78AE2 TP; DCS100C PO; DIBU30OI TOP; FERR325T18 PO; IBUP-844 PO; LABE200T7 PO; LORA10CA PO; PREN-53 PO
[2019-11-26] MEDS ORDERED: LABETALOL HCL 20 MG/4 ML VIAL IV STA (15:16)
--- NOTE | 2019-11-26 15:23 | ED General ---
General Chief Complaint: Cardiac/General Problems Stated Complaint: BP 200/110 Nursing Triage Note: Pt sent to ED for high blood pressure. Pt has hx of high blood pressure and had preeclampsia during . Pt is one week post . Pt c/o headache. Pt reports taking Labetelol 200 mg BID. Nursing Sepsis Screen: No Definite Risk Source of Information: Patient History of Present Illness Date Seen by Provider: Nov 26, 2019 Time Seen by Provider: 14:58 Initial Comments 34-year-old female presenting with high blood pressure from the clinic. She had a vaginal delivery on November 17. She did have preeclampsia and high blood pressure throughout the . She states that her blood pressure was also high before as well but was not on medication. She has been having some headaches recently since delivery. She has had some mild swelling since delivery but feels like it has been improving. Allergies and Home Medications Allergies Coded Allergies: No Known Drug Allergies (Unverified , 11/04/19) Home Medications Benzocaine/Menthol 78 Gm Aerosol, 56 ML TP UD PRN for PAIN- SEE INSTRUCTIONS Prescribed by: LOGAN GONZALEZ on 11/18/19 0811 Dibucaine 30 Gm Oint, 0 GM TOP UD PRN for PAIN- SEE INSTRUCTIONS Prescribed by: LOGAN GONZALEZ on 11/18/19 0811 Docusate Sodium 100 Mg Capsule, 100 MG PO BID PRN for CONSTIPATION-1ST LINE Prescribed by: LOGAN GONZALEZ on 11/18/19 0811 Ferrous Sulfate 325 Mg Tablet, 325 MG PO DAILY Prescribed by: LOGAN GONZALEZ on 11/18/19 0811 Hydrocodone Bit/Acetaminophen 1 Tab Tab, 1 TAB PO Q4H PRN for PAIN-MODERATE (5- 7) Prescribed by: LOGAN GONZALEZ on 11/18/19 0811 Ibuprofen 600 Mg Tablet, 600 MG PO Q6HR Prescribed by: LOGAN GONZALEZ on 11/18/19 0811 Labetalol HCl 200 Mg Tablet, 200 MG PO BID, (Reported) Labetalol HCl 200 Mg Tablet, 200 MG PO TID Prescribed by: DANIELA CESAR on 11/26/19 1721 Loratadine 10 Mg Capsule, 10 MG PO DAILY, (Reported) Iss332/Iron Fumarate/FA/Dss 1 Each Tablet, 1 EACH PO DAILY, (Reported) Patient Home Medication List Home Medication List Reviewed: Yes Review of Systems Review of Systems Constitutional: No chills, No diaphoresis, No dizziness, No fever, No malaise, No weakness EENTM: No ear discharge, No ear pain, No blurred vision, No double vision, No eye pain, No vision loss, No epistaxis Respiratory: No cough, No short of breath Cardiovascular: No chest pain; edema (improving since delivery); No palpitations Gastrointestinal: No nausea, No vomiting Genitourinary: No dysuria, No frequency, No pain Musculoskeletal: No back pain, No joint pain, No neck pain Skin: No change in color, No rash Psychiatric/Neurological: Denies Anxiety; Headache; Denies Numbness, Denies Paresthesia Hematologic/Lymphatic: Denies Easy Bleeding, Denies Easy Bruising Past Opppbvg-Oinlub-Ubgogu Hx Past Med/Social Hx: Reviewed Nursing Past Med/Soc Hx Patient Social History 2nd Hand Smoke Exposure: No Recent Foreign Travel: No Contact w/Someone Who Travel: No Recent Infectious Disease Expo: No Recent Hopitalizations: No Immunizations Up To Date PED Vaccines UTD: Yes Date of Influenza Vaccine: Jun 17, 2019 Seasonal Allergies Seasonal Allergies: No Past Medical History Surgeries: No Respiratory: No Cardiac: Yes Hypertension Neurological: No Genitourinary: No Gastrointestinal: No Musculoskeletal: No Endocrine: No HEENT: No Cancer: No Psychosocial: No Integumentary: No Blood Disorders: No Adverse Reaction/Blood Tranf: No Physical Exam Vital Signs Vital Signs - First Documented 11/26/19 14:55 Temp 35.9 Pulse 67 Resp 14 B/P (MAP) 200/92 (128) Pulse Ox 98 O2 Delivery Room Air Capillary Refill : Less Than 3 Seconds Height, Weight, BMI Height: '" Weight: lbs. oz. kg; 35.00 BMI Method: General Appearance: No Apparent Distress, WD/WN Eyes: Bilateral Eye PERRL, Bilateral Eye EOMI HEENT: PERRL/EOMI, Normal ENT Inspection, Pharynx Normal Neck: Full Range of Motion, Normal Inspection, Non Tender, Supple Respiratory: Chest Non Tender, Lungs Clear, Normal Breath Sounds, No Accessory Muscle Use, No Respiratory Distress Cardiovascular: Regular Rate, Rhythm, Normal Peripheral Pulses Gastrointestinal: Normal Bowel Sounds, No Pulsatile Mass, Non Tender, Soft Extremity: Normal Capillary Refill, Normal Range of Motion, Non Tender, No Calf Tenderness, Pedal Edema (trace to 1+ BLE) Neurologic/Psychiatric: Alert, Oriented x3, No Motor/Sensory Deficits, Normal Mood/Affect, registered nurse cardiac telemetry II-XII Norm as Tested Skin: Normal Color, Warm/Dry Progress/Results/Core Measures Suspected Sepsis Recent Fever Within 48 Hours: No Infection Criteria Present: None New/Unexplained Altered Menta: No Sepsis Screen: No Definite Risk SIRS Temperature: Pulse: 67 Respiratory Rate: 14 Laboratory Tests 11/26/19 15:15: White Blood Count 13.4H Blood Pressure 200 /92 Mean: 128 Laboratory Tests 11/26/19 15:15: Creatinine 0.86, Platelet Count 502H, Total Bilirubin 0.2 Results/Orders Lab Results Laboratory Tests Test 11/26/19 15:15 Range/Units White Blood Count 13.4 H 4.3-11.0 10^3/uL Red Blood Count 4.15 L 4.35-5.85 10^6/uL Hemoglobin 9.5 #L 11.5-16.0 G/DL Hematocrit 32 L 35-52 % Mean Corpuscular Volume 77 L 80-99 FL Mean Corpuscular Hemoglobin 23 L 25-34 PG Mean Corpuscular Hemoglobin Concent 30 L 32-36 G/DL Red Cell Distribution Width 17.7 H 10.0-14.5 % Platelet Count 502 H 130-400 10^3/uL Mean Platelet Volume 9.7 7.4-10.4 FL Neutrophils (%) (Auto) 72 42-75 % Lymphocytes (%) (Auto) 18 12-44 % Monocytes (%) (Auto) 8 0-12 % Eosinophils (%) (Auto) 1 0-10 % Basophils (%) (Auto) 0 0-10 % Neutrophils # (Auto) 9.7 H 1.8-7.8 X 10^3 Lymphocytes # (Auto) 2.4 1.0-4.0 X 10^3 Monocytes # (Auto) 1.1 H 0.0-1.0 X 10^3 Eosinophils # (Auto) 0.2 0.0-0.3 10^3/uL Basophils # (Auto) 0.0 0.0-0.1 10^3/uL Urine Color VALARIE H Urine Clarity SLT CLOUDY Urine pH 6.5 5-9 Urine Specific Mathews 1.010 L 1.016-1.022 Urine Protein TRACE H NEGATIVE Urine Glucose (UA) NEGATIVE NEGATIVE Urine Ketones NEGATIVE NEGATIVE Urine Nitrite NEGATIVE NEGATIVE Urine Bilirubin NEGATIVE NEGATIVE Urine Urobilinogen 0.2 < = 1.0 MG/DL Urine Leukocyte Esterase 3+ H NEGATIVE Urine RBC (Auto) 3+ H NEGATIVE Urine RBC 10-25 H /HPF Urine WBC >100 H /HPF Urine Squamous Epithelial Cells 2-5 /HPF Urine Crystals NONE /LPF Urine Bacteria TRACE /HPF Urine Casts NONE /LPF Urine Mucus NONE /LPF Urine Culture Indicated YES Sodium Level 143 135-145 MMOL/L Potassium Level 4.4 3.6-5.0 MMOL/L Chloride Level 106 98-107 MMOL/L Carbon Dioxide Level 23 21-32 MMOL/L Anion Gap 14 5-14 MMOL/L Blood Urea Nitrogen 13 7-18 MG/DL Creatinine 0.86 0.60-1.30 MG/DL Estimat Glomerular Filtration Rate > 60 BUN/Creatinine Ratio 15 Glucose Level 81 70-105 MG/DL Calcium Level 9.6 8.5-10.1 MG/DL Corrected Calcium 9.7 8.5-10.1 MG/DL Total Bilirubin 0.2 0.1-1.0 MG/DL Aspartate Amino Transf (AST/SGOT) 11 5-34 U/L Alanine Aminotransferase (ALT/SGPT) 13 0-55 U/L Alkaline Phosphatase 104 40-136 U/L Pro-B-Type Natriuretic Peptide 667.4 H <75.0 PG/ML Total Protein 7.1 6.4-8.2 GM/DL Albumin 3.9 3.2-4.5 GM/DL Lipase 51 8-78 U/L My Orders Orders - DANIELA CESAR MD Comprehensive Metabolic Panel (11/26/19 15:09) Lipase (11/26/19 15:09) Ua Culture If Indicated (11/26/19 15:09) Ed Iv/Invasive Line Start (11/26/19 15:09) Cbc With Automated Diff (11/26/19 15:09) Ct Angio Chest W (11/26/19 15:26) Probnp Fs (11/26/19 15:26) Urine Culture (11/26/19 15:15) Iohexol Injection (Omnipaque 350 Mg/Ml 1 (11/26/19 15:45) Received Contrast (Hold Metformin- Contr (11/26/19 15:45) Sodium Chloride Flush (Catheter Flush Sy (11/26/19 15:45) Ns (Ivpb) (Sodium Chloride 0.9% Ivpb Bag (11/26/19 15:45) Medications Given in ED Current Medications Medications Dose Ordered Sig/Milly Route Start Time Stop Time Status Last Admin Dose Admin Iohexol 125 ml ONCE ONCE IV 11/26/19 15:45 11/26/19 15:46 DC 11/26/19 15:56 125 ML Sodium Chloride 10 ml NEEDED PRN IV 11/26/19 15:45 11/26/19 15:56 10 ML Sodium Chloride 100 ml ONCE ONCE IV 11/26/19 15:45 11/26/19 15:46 DC 11/26/19 15:56 100 ML Vital Signs/I&O 11/26/19 14:55 Temp 35.9 Pulse 67 Resp 14 B/P (MAP) 200/92 (128) Pulse Ox 98 O2 Delivery Room Air Capillary Refill : Less Than 3 Seconds Blood Pressure Mean: 128 Progress Note #1: Progress Note Check basic labs and urine to look for elevated liver enzymes or protein in her urine to indicate that she might be having HELLP syndrome or severe complications with her hypertension from ecclampsia and . She had a 50 point variation from right to left arms on systolic blood pressure so a CT scan was also ordered to look for PE or Aortic Dissection or Coarctation of Aorta Labetalol 20 mg IV ordered but she had pressure fluctuating from 140-190 systolic so it was held Progress Note #2: Progress Note Labs were stable with improving Hgb. Normal LFTs and mild elevation of proBNP. Awaiting CT Angiogram of chest Progress Note #3: Time: 17:12 Progress Note D/w Dr. Gonzalez from OB about the patient's blood pressure and test results. He recommended increase her Labetalol to 200 mg TID and follow up. He thought she had been on TID dosing before delivery but she is currently only on BID. Updated pt and family of plan and results. Diagnostic Imaging Diagonstic Imaging: CT Plain Films/CT/US/NM/MRI: chest Comments NAME: DANNIE ROGERS [employer] REC#: [id number] PT STATUS: REG ER : 1985 PHYSICIAN: DANIELA CESAR MD ADMIT DATE: 11/26/19/ER FS Draft Date of Exam:11/26/19 CT ANGIO CHEST W PROCEDURE: CT angiography of the chest with contrast. TECHNIQUE: Multiple contiguous axial images were obtained through the chest after uneventful bolus administration of intravenous contrast. 3D reconstructed CTA MIP acquisitions were also performed. Auto Exposure Controls were utilized during the CT exam to meet ALARA standards for radiation dose reduction. DATE: November 26, 2019. COMPARISON: None. INDICATION: 34-year-old female, hypertension with variation between the left and right arms. FINDINGS: There is no identified pulmonary nodule. There is no lung mass. There are very mild linear opacities in the right and left lower lobes likely reflecting minimal atelectasis. There is no additional focal airspace consolidation. There is some respiratory motion artifact present. There is a trace amount of pleural fluid bilaterally. There is no pneumothorax. The central airways are patent. There is no identified pulmonary embolus. The main pulmonary artery is normal in caliber. The heart is not enlarged. There is no pericardial effusion. The right and left subclavian arteries appear widely patent. The bilateral vertebral arteries and imaged portions of the common carotid arteries are patent. There is no identified vascular narrowing. There is no identified abnormally enlarged mediastinal, hilar or axillary lymph node meeting CT size criteria for adenopathy. The imaged portions of the upper abdomen are unremarkable in appearance. There is no acute bony abnormality. IMPRESSION: CT chest: 1. Patent vasculature without evidence of occlusion or stenosis. 2. Trace amounts of pleural fluid bilaterally. Dictated on workstation # [id number] Dict: 11/26/19 1611 Trans: 11/26/19 1702 [facility] [id number] Interpreted by: MELANIE HERNANDEZ MD Electronically signed by: Departure Impression Primary Impression: Hypertension in , delivered with condition Disposition: HOME, SELF-CARE Condition: Stable Departure-Patient Inst. Decision time for Depature: 17:18 Referrals: LUIS ALBERTO OLIVARES MD (PCP/Family) Primary Care Physician LOGAN GONZALEZ DO Patient Instructions: DASH Diet, High Blood Pressure (DC), High Blood Pressure and Add. Discharge Instructions: Increase your Labetalol dose to 200 mg 3 times a day Follow up with clinic and return sooner if having more problems/concerns All discharge instructions reviewed with patient and/or family. Voiced understanding. Scripts Labetalol HCl (Labetalol HCl) 200 Mg Tablet 200 MG PO TID for high blood pressure for 15 Days, #45 TAB 0 Refills Prov: DANIELA CESAR MD 11/26/19 DANIELA CESAR MD Nov 26, 2019 15:23
--- NOTE | 2019-11-26 15:29 | NUR ---
Pt's blood pressure approximately 50 points different between arms. Hold Labetalol at this time per Dr. Vance.
[2019-11-26 15:30] LABS: BASOPHILS % (AUTO) 0 % (0-10); BILIRUBIN,URINE NEGATIVE (NEGATIVE); CLARITY,URINE SLT CLOUDY; COLOR,URINE AMBER; EOSINOPHILS % (AUTO) 1 % (0-10); GLUCOSE, URINE (UA) NEGATIVE (NEGATIVE); HEMATOCRIT 32 % (35-52); HEMOGLOBIN 9.5 G/DL (11.5-16.0); KETONES,URINE NEGATIVE (NEGATIVE); LEUKOCYTE ESTERASE ,URINE 3+ (NEGATIVE); LYMPHOCYTES % (AUTO) 18 % (12-44); MEAN CORPUSCULAR HEMOGLOBIN 23 PG (25-34); MEAN CORPUSCULAR HGB CONC 30 G/DL (32-36); MEAN CORPUSCULAR VOLUME 77 FL (80-99); MEAN PLATELET VOLUME 9.7 FL (7.4-10.4); MONOCYTES % (AUTO) 8 % (0-12); NEUTROPHILS % (AUTO) 72 % (42-75); NITRITE,URINE NEGATIVE (NEGATIVE); PH,URINE 6.5 (5-9); PLATELET COUNT 502 10^3/uL (130-400); PROTEIN,URINE TRACE (NEGATIVE); RED CELL DISTRIBUTION WIDTH 17.7 % (10.0-14.5); WBC,URINE >100 /HPF; WHITE BLOOD COUNT 13.4 10^3/uL (4.3-11.0)
[2019-11-26 15:31] LABS: BACTERIA,URINE TRACE /HPF; EOSINOPHILS # (AUTO) 0.2 10^3/uL (0.0-0.3); LYMPHOCYTES # (AUTO) 2.4 X 10^3 (1.0-4.0); MONOCYTES # (AUTO) 1.1 X 10^3 (0.0-1.0); NEUTROPHILS # (AUTO) 9.7 X 10^3 (1.8-7.8)
[2019-11-26] MEDS ORDERED: NS 100 ML (IVPB) BAG IV ONE (15:45)
[2019-11-26] MEDS ORDERED: IOHEXOL 350 MG/ML 150 ML (OMNIPAQUE 350) VIAL IV ONE (15:45)
[2019-11-26] MEDS ORDERED: CATHETER FLUSH 10 ML SYR IV PRN (15:45)
[2019-11-26] MEDS ORDERED: HOLD METFORMIN - RECEIVED CONTRAST 20 ML VIAL IV SCH (15:45)
[2019-11-26 15:46] LABS: ALANINE AMINOTRANSFERASE 13 U/L (0-55); ALBUMIN 3.9 GM/DL (3.2-4.5); ALKALINE PHOSPHATASE 104 U/L (40-136); BILIRUBIN,TOTAL 0.2 MG/DL (0.1-1.0); BUN/CREATININE RATIO 15; CALCIUM 9.6 MG/DL (8.5-10.1); CARBON DIOXIDE 23 MMOL/L (21-32); CHLORIDE 106 MMOL/L (98-107); CREATININE SERUM 0.86 MG/DL (0.60-1.30); GFR ESTIMATED > 60; GLUCOSE 81 MG/DL (70-105); LIPASE 51 U/L (8-78); POTASSIUM 4.4 MMOL/L (3.6-5.0); SODIUM 143 MMOL/L (135-145); TOTAL PROTEIN 7.1 GM/DL (6.4-8.2)
--- NOTE | 2019-11-26 17:03 | Diagnostic Imaging Report ---
PROCEDURE: CT angiography of the chest with contrast. TECHNIQUE: Multiple contiguous axial images were obtained through the chest after uneventful bolus administration of intravenous contrast. 3D reconstructed CTA MIP acquisitions were also performed. Auto Exposure Controls were utilized during the CT exam to meet ALARA standards for radiation dose reduction. DATE: November 26, 2019. COMPARISON: None. INDICATION: 34-year-old female, hypertension with variation between the left and right arms. FINDINGS: There is no identified pulmonary nodule. There is no lung mass. There are very mild linear opacities in the right and left lower lobes likely reflecting minimal atelectasis. There is no additional focal airspace consolidation. There is some respiratory motion artifact present. There is a trace amount of pleural fluid bilaterally. There is no pneumothorax. The central airways are patent. There is no identified pulmonary embolus. The main pulmonary artery is normal in caliber. The heart is not enlarged. There is no pericardial effusion. The right and left subclavian arteries appear widely patent. The bilateral vertebral arteries and imaged portions of the common carotid arteries are patent. There is no identified vascular narrowing. There is no identified abnormally enlarged mediastinal, hilar or axillary lymph node meeting CT size criteria for adenopathy. The imaged portions of the upper abdomen are unremarkable in appearance. There is no acute bony abnormality. IMPRESSION: CT chest: 1. Patent vasculature without evidence of occlusion or stenosis. 2. Trace amounts of pleural fluid bilaterally. Dictated by: Dictated on workstation # [id number]
[2019-11-26] MEDS ORDERED: LABE200T7 PO (17:21)
[2019-11-26 17:23] VITALS: BP 192/105
== END 2019-11-26 17:28 | disposition home or self-care (01) ==
LOC: EDUNIT# 14:55 → ER FS 14:56
DX: O10.93 Unspecified pre-existing hypertension complicating the puerperium (principal)
CPT/HCPCS: 36415; 71275; 80053; 81000; 83690; 83880; 85025; 87077; 87088; 87186

== ENCOUNTER → 2019-12-23 | Outpatient (CLI) | payer BC ==
[2019-12-23 14:10] LABS: SODIUM 137 MMOL/L (135-145)
[2019-12-23 14:11] LABS: BUN/CREATININE RATIO 10; CALCIUM 10.1 MG/DL (8.5-10.1); CARBON DIOXIDE 23 MMOL/L (21-32); CHLORIDE 98 MMOL/L (98-107); GFR ESTIMATED > 60; GLUCOSE 86 MG/DL (70-105); POTASSIUM 3.9 MMOL/L (3.6-5.0)
== END ==
LOC: LAB FS 13:09
PROVIDERS: ATTEND Family Medicine
DX: I10 Essential (primary) hypertension (principal)
CPT/HCPCS: 36415; 80048

== ENCOUNTER → 2020-07-05 | Outpatient (CLI) | payer BC ==
[~2020-07-05] MED LIST changes: -BENZ78AE2 TP; +BENZ78AE5 TP
[2020-07-05 08:59] LABS: ALANINE AMINOTRANSFERASE 9 U/L (0-55); ALBUMIN 4.6 GM/DL (3.2-4.5); ALKALINE PHOSPHATASE 68 U/L (40-136); BILIRUBIN,TOTAL 0.2 MG/DL (0.1-1.0); BUN/CREATININE RATIO 19; CALCIUM 9.7 MG/DL (8.5-10.1); CARBON DIOXIDE 24 MMOL/L (21-32); CHLORIDE 102 MMOL/L (98-107); GFR ESTIMATED > 60; GLUCOSE 95 MG/DL (70-105); SODIUM 138 MMOL/L (135-145); TOTAL PROTEIN 7.6 GM/DL (6.4-8.2)
[2020-07-05 15:23] LABS: CHOLESTEROL 241 MG/DL (< 200); HDL CHOLESTEROL 62 MG/DL (40-60); TRIGLYCERIDES 123 MG/DL (<150); VLDL CHOLESTEROL 25 MG/DL (5-40)
== END ==
LOC: LAB FS 08:00
PROVIDERS: ATTEND Family Medicine
DX: I10 Essential (primary) hypertension (principal)
CPT/HCPCS: 36415; 80053; 80061

== ENCOUNTER 2020-08-15 11:14 | Emergency (ER) | payer BC ==
[~2020-08-15] VITALS: Ht 165.1 cm; Wt 87.5 kg
[2020-08-15] MEDS ORDERED: hydrOXYzine (VISTARIL/ATARAX) 25 MG capsule/tablet PO ONE (11:30)
--- NOTE | 2020-08-15 11:46 | ED General ---
General Chief Complaint: Psych/Social Disorder Stated Complaint: BP 196/164; SOB; LIGHTHEADED Nursing Triage Note: Patient presents to the ED with c/o of high blood pressure and trouble breathing. She states her blood pressure was 197/164 and she was having trouble catching her breath. She also reports that she feels more fatigued then usual. Nursing Sepsis Screen: No Definite Risk Source of Information: Patient, RN/MD, RN Notes Reviewed Exam Limitations: No Limitations History of Present Illness Date Seen by Provider: Aug 15, 2020 Time Seen by Provider: 11:10 Initial Comments This patient is a 35-year-old female presents to the emergency department stating that she feels tightness in her chest and can't breathe and tearful. Patient states her blood pressure is also elevated. While monitoring the patient discuss at length with patient about history. Patient does have a long history of anxiety issues states that she's been under increased stress with a new baby with her been out of work. Patient states she is getting help from her [id number] and she is been doing great. However she is stressful been alone with by herself with the baby at night. Patient states she works at [email or web address] as a [employer]. Patient states she just got to work and just got overwhelmed. After this mild conversation with the patient patient is much improved blood pressure went down from 165 systolic down to 130 systolic which is normal for the patient. Patient does have a history of hypertension and takes lisinopril for the same. Patient does not appear to be in acute distress at this time. Concerning the patient having a panic attack. Timing/Duration: 1/2 Hour Severity: Mild Associated Systoms: Denies Symptoms Allergies and Home Medications Allergies Coded Allergies: No Known Drug Allergies (Unverified , 11/04/19) Home Medications Benzocaine/Menthol 78 Gm Aerosol, 56 ML TP UD PRN for PAIN- SEE INSTRUCTIONS Prescribed by: LOGAN FRAGOSO on 11/18/19 08 Dibucaine 30 Gm Oint, 0 GM TOP UD PRN for PAIN- SEE INSTRUCTIONS Prescribed by: LOGAN FRAGOSO on 11/18/19 08 Docusate Sodium 100 Mg Capsule, 100 MG PO BID PRN for CONSTIPATION-1ST LINE Prescribed by: LOGAN FRAGOSO on 11/18/19 08 Ferrous Sulfate 325 Mg Tablet, 325 MG PO DAILY Prescribed by: LOGAN FRAGOSO on 11/18/19 08 Hydrocodone Bit/Acetaminophen 1 Tab Tab, 1 TAB PO Q4H PRN for PAIN-MODERATE (5- 7) Prescribed by: LOGAN FRAGOSO on 11/18/19 08 Ibuprofen 600 Mg Tablet, 600 MG PO Q6HR Prescribed by: LOGAN FRAGOSO on 11/18/19 08 Labetalol HCl 200 Mg Tablet, 200 MG PO BID, (Reported) Labetalol HCl 200 Mg Tablet, 200 MG PO TID Prescribed by: DANIELA CESAR on 11/26/19 172 Loratadine 10 Mg Capsule, 10 MG PO DAILY, (Reported) [id number]/Iron Fumarate/FA/Dss 1 Each Tablet, 1 EACH PO DAILY, (Reported) Patient Home Medication List Home Medication List Reviewed: Yes Review of Systems Review of Systems Constitutional: No no symptoms reported; see HPI; No chills, No diaphoresis, No dizziness, No fever, No malaise, No weakness, No weight gain, No weight loss, No other EENTM: No see HPI, No no symptoms reported, No ear discharge, No hearing loss, No ear pain, No blurred vision, No double vision, No eye pain, No tearing, No vision loss, No dental problems, No hoarseness, No mouth pain, No mouth swelling, No epistaxis, No nose congestion, No nose pain, No throat pain, No throat swelling, No other Respiratory: No no symptoms reported, No see HPI, No cough, No dyspnea on exertion, No hemoptysis, No orthopnea, No phlegm; short of breath (resolved dur ing conversation. Anxiety improved.); No stridor, No wheezing, No other Cardiovascular: No no symptoms reported, No see HPI, No chest pain, No edema, No Hx of Intervention, No palpitations, No syncope, No vascular heart diseas, No other Gastrointestinal: No RUQ, No LUQ, No RLQ, No LLQ, No no symptoms reported, No see HPI, No abdominal pain, No constipation, No diarrhea, No dysphagia, No hematemesis, No heartburn, No jaundice, No loss of appetite, No melena, No nirali sea, No vomiting, No other Skin: No no symptoms reported, No see HPI, No change in color, No change in slick r/nails, No dryness, No hx of skin cancer, No lesions, No lumps, No pruritus, No rash, No other Psychiatric/Neurological: See HPI, Anxiety All Other Systems Reviewed Negative Unless Noted: Yes Past Rnolyia-Zopyvm-Xoyywn Hx Patient Social History Alcohol Use: Denies Use Recreational Drug Use: No Smoking Status: Never a Smoker 2nd Hand Smoke Exposure: No Recent Foreign Travel: No Contact w/Someone Who Travel: No Recent Infectious Disease Expo: No Recent Hopitalizations: No Physical Abuse: No Sexual Abuse: No Mistreated: No Fear: No Immunizations Up To Date PED Vaccines UTD: Yes Date of Influenza Vaccine: Jun 17, 2019 Seasonal Allergies Seasonal Allergies: No Past Medical History Surgeries: No Respiratory: No Cardiac: Yes Hypertension Neurological: No Genitourinary: No Gastrointestinal: No Musculoskeletal: No Endocrine: No HEENT: No Cancer: No Psychosocial: No Integumentary: No Blood Disorders: No Adverse Reaction/Blood Tranf: No Physical Exam Vital Signs Vital Signs - First Documented 08/15/20 11:25 Temp 36.1 Pulse 113 Resp 16 B/P (MAP) 165/104 (124) Pulse Ox 98 O2 Delivery Room Air Capillary Refill : Less Than 3 Seconds Height, Weight, BMI Height: '" Weight: lbs. oz. kg; 32.00 BMI Method: General Appearance: No Apparent Distress, WD/WN, Anxious Respiratory: Chest Non Tender, Lungs Clear, Normal Breath Sounds, No Accessory Muscle Use, No Respiratory Distress Cardiovascular: Regular Rate, Rhythm, No Edema, No Gallop, No JVD, No Murmur, Normal Peripheral Pulses Gastrointestinal: Normal Bowel Sounds, No Organomegaly, No Pulsatile Mass, Non Tender, Soft Extremity: Normal Capillary Refill, Normal Inspection, Normal Range of Motion, Non Tender, No Calf Tenderness, No Pedal Edema Neurologic/Psychiatric: Alert, Oriented x3, No Motor/Sensory Deficits, Normal Mood/Affect Skin: Normal Color, Warm/Dry Progress/Results/Core Measures Suspected Sepsis Recent Fever Within 48 Hours: No Infection Criteria Present: None New/Unexplained Altered Menta: No Sepsis Screen: No Definite Risk SIRS Temperature: Pulse: 113 Respiratory Rate: 16 Blood Pressure 165 /104 Mean: 124 Results/Orders My Orders Orders - LESLYE EDWARDS MD Hydroxyzine Cap/Tab (Vistaril) (08/15/20 11:30) Medications Given in ED Current Medications Medications Dose Ordered Sig/Milly Route Start Time Stop Time Status Last Admin Dose Admin Hydroxyzine Pamoate 25 mg ONCE ONCE PO 08/15/20 11:30 08/15/20 11:31 DC 08/15/20 11:35 25 MG Vital Signs/I&O 08/15/20 11:25 Temp 36.1 Pulse 113 Resp 16 B/P (MAP) 165/104 (124) Pulse Ox 98 O2 Delivery Room Air Capillary Refill : Less Than 3 Seconds Blood Pressure Mean: 124 Progress Note : Time: 11:44 Progress Note Patient given hydroxyzine to help calm the patient. Blood pressure at this time is 115/88 much improved. Please patient was having a mild panic panic attack with anxiety. I did discuss at length with patient about concerns and findings. Patient states understanding will follow up with primary care physician discuss options for possible further medication for needed for depression and anxiety needed. Continue all home medications. Departure Impression Primary Impression: Anxiety Disposition: 01 HOME, SELF-CARE Condition: Stable Departure-Patient Inst. Decision time for Depature: 11:46 Referrals: LUIS ALBERTO OLIVARES MD (PCP/Family) Primary Care Physician Patient Instructions: Panic Disorder (DC) Add. Discharge Instructions: Continue with all medications as a for blood pressure issues. Follow-up with your primary care physician and discuss possible anxiety medications. All discharge instructions reviewed with patient and/or family. Voiced understanding. LESLYE EDWARDS MD Aug 15, 2020 11:46
[2020-08-15 11:53] VITALS: BP 115/88
== END 2020-08-15 11:50 | disposition home or self-care (01) ==
LOC: EDUNIT# 11:14 → ER FS 11:16
DX: F41.9 Anxiety disorder, unspecified (principal); I10 Essential (primary) hypertension
CPT/HCPCS: 99283

== ENCOUNTER → 2021-08-10 | Outpatient (CLI) | payer BC ==
[~2021-08-10] MED LIST changes: -DCS100C PO; +DOCU-239 PO
[2021-08-10 11:20] LABS: CARBON DIOXIDE 21 MMOL/L (21-32); CHLORIDE 100 MMOL/L (98-107); SODIUM 135 MMOL/L (135-145)
[2021-08-10 11:21] LABS: ALANINE AMINOTRANSFERASE 9 U/L (0-55); ALBUMIN 4.6 GM/DL (3.2-4.5); ALKALINE PHOSPHATASE 61 U/L (40-136); BILIRUBIN,TOTAL 0.2 MG/DL (0.1-1.0); BUN/CREATININE RATIO 14; CALCIUM 9.6 MG/DL (8.5-10.1); CREATININE SERUM 0.69 MG/DL (0.60-1.30); GFR ESTIMATED 97; GLUCOSE 90 MG/DL (70-105); TOTAL PROTEIN 7.5 GM/DL (6.4-8.2)
[2021-08-10 15:03] LABS: TRIGLYCERIDES 148 MG/DL (<150); VLDL CHOLESTEROL 30 MG/DL (5-40)
[2021-08-10 15:08] LABS: CHOLESTEROL 219 MG/DL (< 200)
[2021-08-10 15:09] LABS: HDL CHOLESTEROL 57 MG/DL (40-60)
== END ==
LOC: LAB FS 09:21
PROVIDERS: ATTEND Family Medicine
DX: Z00.00 Encounter for general adult medical examination without abnormal findings (principal)
CPT/HCPCS: 36415; 80053; 80061